=== PATIENT | male | born 2000 | race Asian ===

== ENCOUNTER 2021-03-02 20:57 | Emergency (ER) | payer MEDICAID ==
[~2021-03-02] VITALS: Ht 172.7 cm; Wt 61.2 kg
[2021-03-02 21:33] VITALS: BP 135/81
== END 2021-03-02 23:24 | disposition home or self-care (01) ==
LOC: ER 20:58
DX: S43.005A Unspecified dislocation of left shoulder joint, initial encounter (principal); F12.10 Cannabis abuse, uncomplicated; W01.0XXA Fall on same level from slipping, tripping and stumbling without subsequent striking against object, initial encounter; Y93.89 Activity, other specified; Y92.89 Other specified places as the place of occurrence of the external cause; Y99.8 Other external cause status
CPT/HCPCS: 73030